=== PATIENT | female | born 1945 ===

== ENCOUNTER 2018-08-24 07:28 | Outpatient (CLI) | payer OTHER | END 2018-08-24 07:29 | disposition home or self-care (01) | LOC: SONOGRAMA 07:28 | DX: R16.0 Hepatomegaly, not elsewhere classified (principal) ==

== ENCOUNTER 2020-02-07 12:53 | Outpatient (CLI) | payer OTHER | END 2020-02-07 13:02 | disposition home or self-care (01) | LOC: RAD 12:53 → MAMO-SONO 13:15 | PROVIDERS: ATTEND Physical Medicine & Rehabilitation | DX: M76.32 Iliotibial band syndrome, left leg (principal); M25.562 Pain in left knee; M17.12 Unilateral primary osteoarthritis, left knee ==